=== PATIENT | male | born 1985 | race Caucasian/White ===

== ENCOUNTER 2017-12-19 08:45 | Emergency (ER) | payer BC | END 2017-12-19 09:41 | disposition home or self-care (01) | LOC: ER 08:45 | DX: K02.9 Dental caries, unspecified (principal); F17.200 Nicotine dependence, unspecified, uncomplicated; Z85.72 Personal history of non-Hodgkin lymphomas | CPT/HCPCS: 99283 ==

== ENCOUNTER 2019-07-13 19:57 | Emergency (ER) | payer SELFPAY ==
[2017-12-19 09:06] VITALS: BP 121/62
[~2019-07-13 19:57] MED LIST: AMOX875T PO; LEVO25TA4 PO; TRAM50TA PO
== END 2019-07-13 19:59 | disposition left against medical advice (07) ==
LOC: ER 19:57
DX: R11.2 Nausea with vomiting, unspecified (principal); R19.7 Diarrhea, unspecified; Z53.21 Procedure and treatment not carried out due to patient leaving prior to being seen by health care provider